=== PATIENT | female | born 1960 | race Caucasian/White ===

== ENCOUNTER 2017-04-01 12:26 | Emergency (ER) | payer OTHER ==
[2017-04-01 12:36] VITALS: BMI 25.4
[2017-04-01 12:38] VITALS: BP 141/82; PULSE 52; RESP 18; TEMP 97.6; O2SAT 100
--- NOTE | 2017-04-01 12:59 | ED PDOC ---
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 Denies any fever, chills or other contacts/exposure at home or work. She admits to trying topical lotion to alleviate her symptoms with no improvements. Of note, patient noted 5 bites to her right leg and 2 to her left leg. Past Medical History Reviewed: Historical Data, Nursing Documentation, Vital Signs Vital Signs: Last Vital Signs Temp 97.6 F 04/01/17 12:37 Pulse 52 L 04/01/17 12:37 Resp 18 04/01/17 12:37 BP 141/82 04/01/17 12:37 Pulse Ox 100 04/01/17 13:19 - Medical History PMH: Hypothyroidism Denies: Chronic Kidney Disease - Surgical History Surgical History: Cholecystectomy - Family History Family History: States: Unknown Family Hx - Social History Current smoker - smoking cessation education provided: No Alcohol: None Drugs: Denies - Home Medications Home Medications: Ambulatory Orders Medication Instructions Recorded Levothyroxine [Synthroid] 100 mcg PO DAILY 10/28/16 Calamine/Pramoxine [Caladryl] 180 ml TP DAILY #1 bottle 04/01/17 Methylprednisolone [Medrol Dose 4 mg PO DAILY #21 mg 04/01/17 Pack (21 tabs)] - Allergies Allergies/Adverse Reactions: Allergies Allergy/AdvReac Type Severity Reaction Status Date / Time No Known Allergies Allergy Verified 10/28/16 07:33 Review of Systems ROS Statement: Except As Marked, All Systems Reviewed And Found Negative Constitutional: Negative for: Fever, Chills Skin: Positive for: Other (bug bites on bilateral legs associated with itchiness , swelling, discharge and slight pain) Physical Exam - Reviewed Nursing Documentation Reviewed: Yes Vital Signs Reviewed: Yes - Physical Exam Appears: Positive for: Well, Non-toxic, No Acute Distress Head Exam: Positive for: ATRAUMATIC, NORMAL INSPECTION, NORMOCEPHALIC Skin: Positive for: Normal Color (associated dried serosanguinous drainage, papular skin lesion and skin excoriation noted), Warm. Negative for: Rash (pus , surrounding erythema or edema, central ubicacion, vesicular lesion) Eye Exam: Positive for: Normal appearance Cardiovascular/Chest: Positive for: Regular Rate, Rhythm Respiratory: Positive for: Normal Breath Sounds Extremity: Positive for: Normal ROM. Negative for: Calf Tenderness Neurologic/Psych: Positive for: Alert, treatment supervisor II-XII, Oriented - ECG O2 Sat by Pulse Oximetry: 100 (RA) Pulse Ox Interpretation: Normal Medical Decision Making Medical Decision Making: Initial Impression: Insect bites Initial Plan: Scribe Attestation: Documented by Ana Kerr, acting as a scribe for Pau Bentley PA-C. Provider Scribe Attestation: All medical record entries made by the Scribe were at my direction and personally dictated by me. I have reviewed the chart and agree that the record accurately reflects my personal performance of the history, physical exam, medical decision making, and the department course for this patient. I have also personally directed, reviewed, and agree with the discharge instructions and disposition. Disposition - Clinical Impression Clinical Impression: Insect bite - wound - Patient ED Disposition Is Patient to be Admitted: No Counseled Patient/Family Regarding: Need For Followup, Rx Given - Disposition Disposition: Routine/Home Disposition Time: 19:18 Condition: STABLE Prescriptions: Calamine/Pramoxine [Caladryl] 180 ml TP DAILY #1 bottle Methylprednisolone [Medrol Dose Pack (21 tabs)] 4 mg PO DAILY #21 mg Instructions: Insect Bite or Sting (ED)
== END 2017-04-01 13:00 | disposition home or self-care (01) ==
LOC: H.ER 12:26
DX: T14.8 Other injury of unspecified body region (principal); W57.XXXA Bitten or stung by nonvenomous insect and other nonvenomous arthropods, initial encounter; Y92.89 Other specified places as the place of occurrence of the external cause; E03.9 Hypothyroidism, unspecified

== ENCOUNTER 2018-09-14 06:40 | Emergency (ER) | payer OTHER ==
[2018-09-14 06:41] VITALS: BMI 25.4
[2018-09-14 06:50] VITALS: RESP 16; TEMP 97.7; O2SAT 100
--- NOTE | 2018-09-14 07:21 | ED PDOC ---
HPI: General Adult Time Seen by Provider: 09/14/18 07:09 Chief Complaint (Nursing): Abnormal Skin Integrity Chief Complaint (Provider): Rash History Per: Patient History/Exam Limitations: no limitations Onset/Duration Of Symptoms: Days (x5) Current Symptoms Are (Timing): Still Present Additional Complaint(s): Federica Templeton is a 58 year old female presenting for evaluation of a rash x5 days. Patient reports the rash is present on her bilateral arms, legs, and back. Patient denies any known allergens. Patient otherwise denies any fevers, chills, throat swelling, difficulty breathing or swallowing, chest pain, shortness of breath, or abdominal pain. Past Medical History Reviewed: Historical Data, Nursing Documentation, Vital Signs Vital Signs: Last Vital Signs Temp 97.7 F 09/14/18 06:47 Pulse 69 09/14/18 06:47 Resp 16 09/14/18 06:47 BP 117/79 09/14/18 06:47 Pulse Ox 100 09/14/18 06:47 - Medical History PMH: Hypothyroidism Denies: Chronic Kidney Disease - Surgical History Surgical History: Cholecystectomy - Family History Family History: States: Unknown Family Hx - Immunization History Hx Tetanus Toxoid Vaccination: No Hx Influenza Vaccination: Yes Hx Pneumococcal Vaccination: No - Home Medications Home Medications: Ambulatory Orders Medication Instructions Recorded Levothyroxine [Synthroid] 100 mcg PO DAILY 10/28/16 Calamine/Pramoxine [Caladryl] 180 ml TP DAILY #1 bottle 04/01/17 Methylprednisolone [Medrol Dose 4 mg PO DAILY #21 mg 04/01/17 Pack (21 tabs)] Cetirizine HCl [Zyrtec] 10 mg PO DAILY #10 capsule 09/14/18 Prednisone 50 mg PO DAILY #5 tab 09/14/18 - Allergies Allergies/Adverse Reactions: Allergies Allergy/AdvReac Type Severity Reaction Status Date / Time No Known Allergies Allergy Verified 10/28/16 07:33 Review of Systems ROS Statement: Except As Marked, All Systems Reviewed And Found Negative Constitutional: Negative for: Fever, Chills ENT: Negative for: Mouth Swelling, Throat Pain, Throat Swelling Cardiovascular: Negative for: Chest Pain Respiratory: Negative for: Shortness of Breath Gastrointestinal: Negative for: Abdominal Pain Skin: Positive for: Rash Physical Exam - Reviewed Nursing Documentation Reviewed: Yes Vital Signs Reviewed: Yes - Physical Exam Appears: Positive for: Non-toxic, No Acute Distress Head Exam: Positive for: ATRAUMATIC, NORMAL INSPECTION, NORMOCEPHALIC Skin: Positive for: Rash (erythematous maculopapular rash to the bilateral forearms, back, and bilateral anterior thighs) Eye Exam: Positive for: EOMI, Normal appearance, PERRL ENT: Positive for: Normal ENT Inspection, Pharynx Is (normal, no swelling) Neck: Positive for: Normal, Painless ROM, Supple Cardiovascular/Chest: Positive for: Regular Rate, Rhythm. Negative for: Murmur Respiratory: Positive for: Normal Breath Sounds. Negative for: Respiratory Distress Gastrointestinal/Abdominal: Positive for: Normal Exam, Soft. Negative for: Tenderness Back: Negative for: L CVA Tenderness, R CVA Tenderness, Vertebral Tenderness Extremity: Negative for: Tenderness, Pedal Edema, Deformity, Swelling Neurologic/Psych: Positive for: Alert, Oriented (x3). Negative for: Motor/Sensory Deficits - ECG O2 Sat by Pulse Oximetry: 100 (RA) Pulse Ox Interpretation: Normal Medical Decision Making Medical Decision Makin Impression: Rash Plan: Patient presenting with rash. Considering allergic reaction and unknown allergen. Will treat with PO Prednisone and Zyrtec. Advised outpatient follow up with early morning babysitter to determine etiology. Scribe Attestation: Documented by Bronson Cordova, acting as a scribe for Miguel Bryant MD. Provider Scribe Attestation: All medical record entries made by the Scribe were at my direction and personally dictated by me. I have reviewed the chart and agree that the record accurately reflects my personal performance of the history, physical exam, medical decision making, and the department course for this patient. I have also personally directed, reviewed, and agree with the discharge instructions and disposition. Disposition - Clinical Impression Clinical Impression: Allergic reaction - Patient ED Disposition Is Patient to be Admitted: No Counseled Patient/Family Regarding: Diagnosis, Need For Followup, Rx Given - Disposition Referrals: [facility] [Outside] Disposition: Routine/Home Disposition Time: 07:26 Condition: FAIR Prescriptions: Cetirizine HCl [Zyrtec] 10 mg PO DAILY #10 capsule Prednisone 50 mg PO DAILY #5 tab Instructions: Hives Forms: [employer] ([employer])
[2018-09-14 07:26] VITALS: BP 116/76; PULSE 70
== END 2018-09-14 08:10 | disposition home or self-care (01) ==
LOC: H.ER 06:40
DX: T78.40XA Allergy, unspecified, initial encounter (principal)